=== PATIENT | male | born 1970 | race Caucasian/White ===

== ENCOUNTER 2017-07-07 10:41 | Emergency (ER) | payer OTHER ==
[2017-07-07 10:55] VITALS: BP 134/81; PULSE 70; TEMP 98.1; BMI 26.9
[2017-07-07] MEDS ORDERED: KETOROLAC TROMETHAMINE 60 MG/2 ML VIAL IM ONE (12:53)
[2017-07-07] MEDS ORDERED: diazePAM 5 MG TABLET PO ONE (12:53)
[2017-07-07] MEDS ORDERED: KETOROLAC TROMETHAMINE 60 MG/2 ML VIAL ONE (12:55)
[2017-07-07] MEDS ORDERED: diazePAM 5 MG TABLET ONE (12:55)
--- NOTE | 2017-07-07 13:02 | PDOC ---
History of Present Illness - General Chief Complaint: Pain Stated Complaint: NECK PROBLEM Time Seen by Provider: 07/07/17 11:56 History Source: Patient Exam Limitations: No Limitations - History of Present Illness Initial Comments: 07/07/17 13:39 My Chief complaint: Left sided neck pain History present illness: Patient is a 47-year-old male with no significant medical history here today with left-sided neck pain that has worsened since yesterday. Patient woke with neck pain yesterday. Patient keeps his head tilted with his chin pointing towards the right. Patient denies any radiation of pain down arms or any numbness of arm or weakness of arm. Patient denies any injury or doing anything strenuous that might of cause pain. 07/07/17 14:37 Timing/Duration: getting worse Severity: moderate (left lateral neck ) Associated Symptoms: reports: denies symptoms Past History - Past Medical History Allergies/Adverse Reactions: Allergies Allergy/AdvReac Type Severity Reaction Status Date / Time No Known Allergies Allergy Verified 07/07/17 10:52 Home Medications: Ambulatory Orders Cyclobenzaprine HCl [Flexeril 10 mg] 10 mg PO Q8H PRN #21 tablet 07/07/17 Enalapril Maleate [Vasotec -] 10 mg PO DAILY 07/07/17 Naproxen [Naprosyn -] 500 mg PO BID PRN #14 tablet 07/07/17 Other medical history: none - Surgical History Appendectomy: Yes - Psycho/Social/Smoking Cessation Hx Anxiety: No Suicidal Ideation: No Smoking History: Never smoked Have you smoked in the past 12 months: No Information on smoking cessation initiated: No Hx Alcohol Use: No Drug/Substance Use Hx: No Substance Use Type: None Review of Systems - Review of Systems Able to Perform ROS?: Yes Constitutional: No: Symptoms Reported HEENTM: No: Symptoms Reported Respiratory: No: Symptoms reported Cardiac (ROS): No: Symptoms Reported ABD/GI: No: Symptoms Reported : No: Symptoms Reported Musculoskeletal: Yes: Neck Pain (left lateral neck pain keeps hand tilted toward rt). No: Joint Swelling Integumentary: No: Symptoms Reported Neurological: No: Symptoms reported *Physical Exam - Vital Signs Last Vital Signs Temp Pulse Resp BP Pulse Ox 98.1 F 70 18 134/81 100 07/07/17 10:53 07/07/17 10:53 07/07/17 10:53 07/07/17 10:53 07/07/17 10:53 - Physical Exam General Appearance: Yes: Appropriately Dressed Neck: positive: Tender lateral (left lateral neck ). negative: Lymphadenopathy (R), Lymphadenopathy (L), Rigidity, Tender midline Respiratory/Chest: positive: Lungs Clear, Normal Breath Sounds. negative: Chest Tender, Respiratory Distress Cardiovascular: positive: Regular Rhythm, Regular Rate, S1, S2 Musculoskeletal: positive: Normal Inspection. negative: CVA Tenderness, CVA Tenderness (R), CVA Tenderness (L) Integumentary: positive: Normal Color Neurologic: positive: Normal Response, Motor Strength 5/5 (upper extremities ), Responsive. negative: Respond to painful stimul (b/l arms ), Numbness, Sensory Deficit Medical Decision Making - Medical Decision Making 07/07/17 12:58 07/07/17 12:58 Patient is a 47-year-old male with no significant medical history here today with left-sided neck pain with decreased range of motion towards left since waking up yesterday. Patient reports the pain has worsened. Patient denies any radiation of pain down left arm or any numbness of left arm. Patient denies any midline neck tenderness. Patient reports the pain currently is an 8 out of 10. [place] PLAN: toradol 60 mg IM now valium 5 mg po now 07/07/17 13:02 07/07/17 13:02 07/07/17 13:40 07/07/17 14:29 FEELING SLIGHTLY BETTER WILL DISCHARGE TO HOME ON NAPROSYN 500 MG BID PRN # 14 TABS FOLLOW UP WITH ORTHOPEDIST FLEXERIL 10 MG EVERY 8 HRS PRN MUSCLE SPASM # 21 TABS *DC/Admit/Observation/Transfer Diagnosis at time of Disposition: Torticollis, acute - Discharge Dispostion Disposition: HOME Condition at time of disposition: Stable - Prescriptions Prescriptions: Cyclobenzaprine HCl [Flexeril 10 mg] 10 mg PO Q8H PRN #21 tablet PRN Reason: Muscle Spasms Naproxen [Naprosyn -] 500 mg PO BID PRN #14 tablet PRN Reason: Pain - Referrals Referrals: Barbra Rea MD [Primary Care Provider] - - Patient Instructions Additional Instructions: Follow-up with orthopedist within the next few days for further evaluation Return to emergency room if symptoms worsen any pain radiating down left arm numbness or weakness of left arm or any other new symptoms develop Patient voiced understanding of discharge instructions and all questions were answered
== END 2017-07-07 14:43 | disposition home or self-care (01) ==
LOC: JERFT 10:41
PROC: 3E0233Z Introduction of Anti-inflammatory into Muscle, Percutaneous Approach (ICD-10-PCS; principal; 2017-07-07)
DX: M43.6 Torticollis (principal)
CPT/HCPCS: 99281-25